=== PATIENT | female | born 1970 | race Caucasian/White ===

== ENCOUNTER 2018-03-16 11:30 | Outpatient (CLI) | payer OTHER | END 2018-03-16 11:31 | disposition home or self-care (01) | LOC: BICMAMMO 11:30 | PROVIDERS: ATTEND Family Medicine | DX: Z12.31 Encounter for screening mammogram for malignant neoplasm of breast (principal) | CPT/HCPCS: 77063; 77067 ==

== ENCOUNTER 2018-04-06 12:19 | Outpatient (CLI) | payer SELFPAY ==
--- NOTE | 2018-04-06 15:45 | ULT ---
THYROID ULTRASOUND: History Thyromegaly. COMPARISON: None. TECHNIQUE: Sagittal and transverse imaging of the thyroid gland is performed. FINDINGS: Isthmus measures 0.14 cm. The right thyroid lobe measures 1.4 x 1.1 x 4.1 cm. The left thyroid lobe measures 1.3 x 1.3 x 4.3 cm. There is a hypoechoic focus in the right thyroid lobe measuring 0.7 cm. There is an irregular complex lesion in the superior pole of the left thyroid lobe measuring 0.5 x 0. 3 x 0.5 cm. There is a cystic lesion in the mid pole left thyroid lobe measuring 0.8 x 0.6 x 0.5 cm. Complex lesion in the mid to lower aspect of the left thyroid lobe measuring 0.8 x 0.5 x 0.5 cm. A small hypoechoic focus in the lower pole of the left thyroid lobe measuring 0.3 x 0.2 x 0.2 cm. Questionable irregular area superior and medial to the superior pole of the left thyroid lobe. This is the region of concern. Dedicated postcontrast soft tissue neck CT is recommended. IMPRESSION: 1. Multiple solid and cystic nodules involving the thyroid gland. The complex lesions in the left t hyroid lobe have a TIRADS calculated score of TR3. Followup imaging in 1 year. 2. Irregular area in the left neck adjacent to the left thyroid lobe. Postcontrast soft tissue neck CT is recommended. POS: TRINA
== END 2018-04-06 12:20 | disposition home or self-care (01) ==
LOC: BICULT 12:19
PROVIDERS: ATTEND Obstetrics & Gynecology
DX: E01.0 Iodine-deficiency related diffuse (endemic) goiter (principal); E04.2 Nontoxic multinodular goiter; E07.9 Disorder of thyroid, unspecified
CPT/HCPCS: 76536

== ENCOUNTER 2019-03-20 13:59 | Outpatient (CLI) | payer OTHER ==
--- NOTE | 2019-03-20 15:01 | ULT ---
LIMITED LEFT BREAST ULTRASOUND: 03/20/2019 PROVIDED CLINICAL HISTORY: Left breast pain. CORRELATION: Outside digital breast tomosynthesis from 02/25/2019. TECHNIQUE: Limited sonographic interrogation was performed of the left breast in the region of left breast pain. FINDINGS: There are no sonographic abnormalities evident in the region of patient pain. IMPRESSION: No sonographic abnormality is evident to explain the patient's breast pain. Negative imaging findings should not preclude further evaluation if clinical findings are suspicious. The patient is referred back to her clinician. POS: OFF
== END 2019-03-20 14:00 | disposition home or self-care (01) ==
LOC: BICMAMMO 13:59
PROVIDERS: ATTEND Student in an Organized Health Care Education/Training Program
DX: N63.0 Unspecified lump in unspecified breast (principal)

== ENCOUNTER 2020-07-25 15:51 | Observation (INO) | payer OTHER, SELFPAY ==
[2020-07-25 16:53] LABS: #Basophils 0.1 thou/uL (0.0-0.2); #Eosinphils 0.1 thou/uL (0.0-0.7); #Lymphocytes 1.8 thou/uL (1.20-3.40); #Monocytes 0.4 thou/uL (0.11-0.59); #Neutrophils 3.2 thou/uL (1.40-6.50); %Eosinophils 1.5 % (0.0-10.0); %Monocytes 7.7 % (0.0-10.0); %Neutrophils 57.9 % (42.0-75.0); Hemoglobin 14.1 g/dL (12.0-16.0); Mean Corpuscular HGB CONC 33.2 g/dL (32.0-36.0); Mean Corpuscular Hemoglobin 30.6 pg (27.0-31.0); Mean Corpuscular Volume 92.3 fL (78.0-98.0); Mean Platelet Volume 8.6 fL (7.4-10.4); Platelet Count 167 thou/uL (130-400); RBC Distribution Width 11.2 % (11.5-14.5); White Blood Cell (WBC) Count 5.6 thou/uL (4.8-10.8)
--- NOTE | 2020-07-25 16:59 | RAD ---
XR Chest 1 View Portable History: Chest pain Comparison: None. Findings: Lungs are mildly hyperinflated. No confluent airspace consolidation, pneumothorax or effusi on. No acute osseous abnormality. Impression: Mild lung hyperinflation can be seen with obstructive pulmonary disease.
[2020-07-25 17:14] LABS: ALT (SGPT) 11 U/L (8-55); AST (SGOT) 15 U/L (5-34); Albumin 4.2 g/dL (3.5-5.0); Alkaline Phosphatase 51 U/L (40-110); Anion Gap 15 mmol/L (10-20); BUN (Urea Nitrogen) 10 mg/dL (7.0-18.7); Bilirubin, Total 0.3 mg/dL (0.2-1.2); Calc. Creatinine Clearance 0 mL/min (70-130); Calcium 8.7 mg/dL (7.8-10.44); Carbon Dioxide 23 mmol/L (22-29); Chloride 104 mmol/L (98-107); Globulin 2.6 g/dL (2.4-3.5); Glucose 143 mg/dL (70-105); Potassium 3.7 mmol/L (3.5-5.1); Protein, Total 6.8 g/dL (6.0-8.3); Sodium 138 mmol/L (136-145)
[2020-07-25] MEDS ORDERED: Aspirin Chewable 81 MG TAB ONE (17:16)
[2020-07-25] MEDS ORDERED: Lorazepam 2 MG/ML VIAL ONE (17:16)
[2020-07-25 17:45] LABS: BHCG - Serum Negative (NEGATIVE); Pregs Control Background? CLEAR/WHITE (CLR/WHITE); Pregs Control Bar Appear? YES (CONTROL BAR)
--- NOTE | 2020-07-25 18:59 | PDOC.FPRHP ---
- History of Present Illness Chief Complaint: Chest pain History of Present Illness: 50yo F presented to the ED [facility] with complaint of chest pain. Pt states she received her 2nd COVID vaccine 2 weeks ago, a few days later started to experience sensation of cold in her nostrils and throat when she breathed - like the burn of breathing cold air. This has been consistent through today. However, earlier today she was on a walk with her and developed chest pain in her central chest. She described the pain as the same burning sensation but it was always present, regardless of breathing. She also started to feel like she was going to pass out which didn't improve until she laid down. By the time she arrived to the ED her sx had significantly improved. Her father had an AL in his early 50's. She is not obese and does not smoke. She states she has hyperlipidemia that she treats with OTC supplements. Pt takes compounded thyroid medications and progesterone. History of esophagitis confirmed on tissue biopsy 2 years ago, is not currently on acid reducing rx. 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 ED Course: Ativan 1mg, 1L NS, 325 ASA. - Allergies/Adverse Reactions Allergies Allergy/AdvReac Type Severity Reaction Status Date / Time adhesive Allergy Intermediate Verified 04/07/15 21:54 codeine Allergy Intermediate Nausea Verified 04/07/15 21:54 corn Allergy Intermediate Verified 07/26/20 05:50 nitrofurantoin Allergy Intermediate Anxiety Verified 04/07/15 21:54 [From Macrobid] nitrofurantoin Allergy Intermediate Anxiety Verified 04/07/15 21:54 macrocrystalline [From Macrobid] GLUTEN Allergy Uncoded 07/26/20 12:52 - Home Medications Medication Instructions Recorded Confirmed Type Dietary Supplement,Misc Comb14 1 capsule PO DAILY 07/25/20 07/25/20 History [Miguel-V] Iron 18 mg PO DAILY 07/25/20 07/25/20 History Magnesium Amino Acid Chelate 100 mg PO DAILY 07/25/20 07/25/20 History [Magnesium] Progesterone, Micronized 100 mg PO DAILY 07/25/20 07/25/20 History [Progesterone] Ubidecarenone/Vit E Acet [Co Q-10 1 each PO DAILY 07/25/20 07/25/20 History 100 mg Softgel] - History PMHx: Hypothyroid, Raynauds, hyperlipidemia, anxiety, depression PSHx: Left knee scope, left shoulder scope, tonsillectomy FHx: Paternal AL in early 50's Social: Denies alcohol, tobacco, drug use. - present. - Review of Systems General: denies: fever/chills, weight/appetite/sleep changes, night sweats Eyes: denies: vision changes, other ENT: denies: nasal congestion, rhinorrhea Respiratory: denies: cough, congestion, shortness of breath Cardiovascular: reports: chest pain. denies: palpitation, edema Gastrointestinal: denies: nausea, vomiting Genitourinary: denies: incontinence, dysuria Skin: denies: rashes, lesions Musculoskeletal: denies: pain, swelling Neurological: reports: syncope (near syncope). denies: numbness Psychological: reports: anxiety, depression - Vital signs BP: 130/64, MAP: 86, Pulse: 99, Resp: 16, Pain: 0, O2 sat: 95 on (Room Air), Wt: 50kg - Physical Exam Constitutional: NAD HEENT: EOMI, MMM Neck: supple, no thyromegaly, no bruits Heart: RRR, normal S1/S2, no murmurs/rubs/gallops, no edema Lungs: CTAB, no respiratory distress, good air movement Abdomen: soft, non-tender Musculoskeletal: normal tone, ROM grossly normal Neurological: no focal deficit Skin: no rash/lesions, good turgor, capillary refill <2 seconds Heme/Lymphatic: no unusual bruising or bleeding, no purpura Psychiatric: good judgment and insight, intact recent and remote memory -Psychiatric: Anxious, tearful at times of exam FMR H&P: Results - Labs Result Diagrams: 07/25/20 16:40 07/25/20 16:40 Lab results: WBC 5.6 thou/uL (4.8-10.8) 07/25/20 16:40 Hgb 14.1 g/dL (12.0-16.0) 07/25/20 16:40 Hct 42.5 % (36.0-47.0) 07/25/20 16:40 MCV 92.3 fL (78.0-98.0) 07/25/20 16:40 Plt Count 167 thou/uL (130-400) 07/25/20 16:40 Neutrophils % 57.9 % (42.0-75.0) 07/25/20 16:40 Sodium 138 mmol/L (136-145) 07/25/20 16:40 Potassium 3.7 mmol/L (3.5-5.1) 07/25/20 16:40 Chloride 104 mmol/L (98-107) 07/25/20 16:40 Carbon Dioxide 23 mmol/L (22-29) 07/25/20 16:40 BUN 10 mg/dL (7.0-18.7) 07/25/20 16:40 Creatinine 0.83 mg/dL (0.6-1.1) 07/25/20 16:40 Glucose 143 mg/dL (70-105) H 07/25/20 16:40 Calcium 8.7 mg/dL (7.8-10.44) 07/25/20 16:40 Total Bilirubin 0.3 mg/dL (0.2-1.2) 07/25/20 16:40 AST 15 U/L (5-34) 07/25/20 16:40 ALT 11 U/L (8-55) 07/25/20 16:40 Alkaline Phosphatase 51 U/L (40-110) 07/25/20 16:40 Serum Total Protein 6.8 g/dL (6.0-8.3) 07/25/20 16:40 Albumin 4.2 g/dL (3.5-5.0) 07/25/20 16:40 - EKG Interpretation EKG: NSR, Non specific T wave changes, borderline QT prolongation - Radiology Interpretation Chest x-ray Status: report reviewed by me (mild hyperinflation) FMR H&P: A/P - Problem List (1) Chest pain Current Visit: Yes Status: Acute Code(s): R07.9 - CHEST PAIN, UNSPECIFIED (2) Hypothyroid Current Visit: Yes Status: Acute Code(s): E03.9 - HYPOTHYROIDISM, UNSPECIFIED (3) Hyperlipidemia Current Visit: Yes Status: Acute Code(s): E78.5 - HYPERLIPIDEMIA, UNSPECIFIED FMR H&P: Upper Level - Plan Chest Pain - ACS r/o - Non specific EKG changes - Negative initial troponin, trend x3 - Heart score: 4 - Asa 81mg - Exercise stress - TTE - Telemetry - Risk stratify Hypothyroid - on compounded thyroid rx - TSH, F T4, T3 Hyperlipidemia - Treated with OTC supplements: nyacin, CoQ 10, flax seed - Lipid panel IVF: SL VTE: SCD Diet: HH Code: Full PCP: [facility] Dispo: Admit to tele observation for ACS r/o and risk stratification. ELOS <48hr Date/Time: 07/25/201858 Jae Davenport DO - PGY2 Addendum - Attending - Attending Attestation Date/Time: 07/25/202009 I personally evaluated the patient and discussed the management with Dr. Davenport. I agree with the History, Examination, Assessment and Plan documented above with any addition or exceptions noted below. The patient will be monitored on telemetry. Getting stress test and echo. Will trend cardiac enzymes. Check thyroid labs.
[2020-07-25 20:31] LABS: Troponin I 0.026 ng/mL (< 0.028)
[2020-07-25 23:10] LABS: Troponin I 0.026 ng/mL (< 0.028)
[2020-07-26 02:14] LABS: SARS-CoV-2 PCR by NAA Not Detected (NotDetected)
[2020-07-26] MEDS ORDERED: Acetaminophen 650 MG Suppository PR PRN (05:43)
[2020-07-26] MEDS ORDERED: Acetaminophen 325 MG TAB PO PRN (05:43)
[2020-07-26] MEDS ORDERED: Nitroglycerin 0.4 MG TAB (25 Tab Bottle) SL PRN (05:43)
[2020-07-26 06:19] VITALS: BMI 20.5
--- NOTE | 2020-07-26 06:28 | PDOC.FM ---
- Subjective Subjective: Patient denies having any of her chest pain this morning. She tells me her doctor had just changed her from armour thyroid to a compounded thyroid about one week ago. - Objective MAR Reviewed: Yes Vital Signs & Weight: Weight Weight 50.802 kg I&O: 07/24/20 07/25/20 07/26/20 06:59 06:59 06:59 Intake Total 10 Output Total 200 Balance -190 Result Diagrams: 07/25/20 16:40 07/25/20 16:40 Phys Exam - Physical Examination Constitutional: NAD Respiratory: no wheezing, clear to auscultation bilateral Cardiovascular: RRR, no significant murmur Gastrointestinal: soft, no distention Psychiatric: normal affect, A&O x 3 Dx/Plan - Plan Plan: Chest Pain - ACS r/o - Non specific EKG changes - Negative initial troponin, trend x3 - Heart score: 4 - Asa 81mg - Exercise stress today - TTE today - FLP wnl Hypothyroid - on compounded thyroid rx - thyroid studies wnl Hyperlipidemia - Treated with OTC supplements: nyacin, CoQ 10, flax seed - wnl flp IVF: SL VTE: SCD Diet: npo for stress Code: Full PCP: [facility] Dispo: tele obs, if normal stress/echo may d/c. Discussed w/ Dr. Richmond. Addendum - Attending - Attending Attestation Date/Time: 07/26/20 1301 I personally evaluated the patient and discussed the management with Dr. Cruz. I agree with the History, Examination, Assessment and Plan documented above with any addition or exceptions noted below. The patient's is free of chest pain. Cardiac enzymes negative. Stress test and echo today. Home if normal.
[2020-07-26 07:13] LABS: Cardiac Risk 3.3 (Less than 4.5)
[2020-07-26 07:30] LABS: Thyroid Stimulating Hormone 2.4545 uIU/mL (0.35-4.94)
[2020-07-26] MEDS ORDERED: Ferrous Sulfate 325 MG TAB PO SCH (08:00)
[2020-07-26] MEDS ORDERED: Progesterone,Micronized 100 MG CAP PO SCH (09:00)
[2020-07-26] MEDS ORDERED: Aspirin Chewable 81 MG TAB PO SCH (09:00)
[2020-07-26] MEDS ORDERED: Ubidecarenone 50 MG CAP PO SCH (09:00)
[2020-07-26 12:55] VITALS: BP 123/58; TEMP 98.4
--- NOTE | 2020-07-26 16:55 | NM ---
MYOCARDIAL PERFUSION SCAN WITH SPECT IMAGING: History: Chest pain FINDINGS: Examination was performed using 27.4 mCi 99M Technetium Sestamibi on the stress and 9.1 mCi on the re sting images. These show a normal distribution of the radiopharemaceutical without signs of ischemia or scar. WALL MOTION: Symmetric contractility to the ventricle. LEFT VENTRICULAR EJECTION FRACTION: The calculated left ventricular ejection fraction is 73%. IMPRESSION: Unremarkable myocardial perfusion scan. POS: OFF
--- NOTE | 2020-07-26 17:29 | DIS ---
DATE OF ADMISSION: 07/25/2020 DATE OF DISCHARGE: 07/26/2020 RESIDENT: Mimi Cruz MD PROCEDURES: 1. Chest x-ray showing hyperinflation and no acute cardiothoracic process. 2. Stress test preliminary results negative. 3. Echocardiogram results pending at time of discharge. PRIMARY DIAGNOSES: 1. Atypical chest pain. 2. Acute coronary syndrome ruled out. SECONDARY DIAGNOSES: 1. Hypothyroidism. 2. Hyperlipidemia. DISCHARGE MEDICATIONS: 1. Progesterone 100 mg p.o. daily. 2. Dietary supplement one capsule p.o. daily. 3. CoQ10 one tab p.o. daily. 4. Magnesium 100 mg p.o. daily. 5. Iron 18 mg p.o. daily. DISCONTINUED MEDICATIONS: None. HISTORY OF PRESENT ILLNESS AND HOSPITAL COURSE: This is a 50-year-old relatively healthy woman, admitted to the hospital due to complaints of chest pain. She noticed this after her second COVID vaccination, but felt like cold when she breathed in. She felt the pain as a cold feeling in her central chest. The patient had felt faint a couple of times, but she did not have syncope. Of note, she has had an irregular heartbeat in the past; she is unable to tell me what that is. 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 In the emergency room, the patient received Ativan 1 mg, 1 L of normal saline, and 325 mg of aspirin. The day after admission, the patient was feeling better. She had no events on telemetry overnight. Her walking stress test showed no EKG changes. Nuclear imaging was pending at the time of her discharge. Echocardiogram was performed. Laboratory data includes hemoglobin 14.1, hematocrit 42.5. D-dimer 0.35. A1c 5.0. Troponin stable at 0.026. Fasting lipid panel within normal limits. TSH 2.45 and free T4 of 1.0. test negative. Sodium 138, potassium 3.7, chloride 104, carbon dioxide 23, BUN 10, creatinine 0.83, glucose 143. The patient was deemed to be very low risk with regard to cardiac event and given initial negative results, she was discharged home. DISCHARGE INSTRUCTIONS: 1. Location: Home. 2. Activity: As tolerated. 3. Diet: Regular. 4. Followup: Follow up with PCP within 7 days. Job ID: [id number]
--- NOTE | 2020-07-31 10:08 | EKG ---
Test Reason : Blood Pressure : / mmHG Vent. Rate : 083 BPM Atrial Rate : 083 BPM P-R Int : 128 ms QRS Dur : 068 ms QT Int : 436 ms P-R-T Axes : 050 078 055 degrees QTc Int : 512 ms Normal sinus rhythm Nonspecific ST and T wave abnormality Abnormal ECG Confirmed by Camelia AGUILAR ([id number]), city editor KAMILA GARCIA ([id number]) on 07/31/2020 10:08:10 AM Referred By: Confirmed By:Camelia AGUILAR
== END 2020-07-26 15:46 | disposition home or self-care (01) ==
LOC: ERS 15:51 → ERHOLD 18:35 → 3SE 19:42
PROVIDERS: ADMIT Family Medicine; ATTEND Family Medicine
DX: R07.89 Other chest pain (principal); E03.9 Hypothyroidism, unspecified; E78.5 Hyperlipidemia, unspecified; I73.00 Raynaud's syndrome without gangrene; F41.9 Anxiety disorder, unspecified; F32.9 Major depressive disorder, single episode, unspecified; Z79.899 Other long term (current) drug therapy; Z88.1 Allergy status to other antibiotic agents; Z88.5 Allergy status to narcotic agent; Z91.018 Allergy to other foods; Z91.048 Other nonmedicinal substance allergy status; Z20.822 Contact with and (suspected) exposure to COVID-19
CPT/HCPCS: 36415; 71045; 78452; 80053; 80061; 83036; 84439; 84443; 84480; 84484; 84703; 85025; 85379; 87635; 93005; 93017; 93306; 96374; A9500; G0378; J2060; U0003; U0005

== ENCOUNTER 2020-08-04 14:05 | Observation (INO) | payer OTHER, SELFPAY ==
[~2020-08-04 14:05] MED LIST: Iopamidol-370 76% 500 ML 1 ML ONE
[2020-08-04 14:31] LABS: #Eosinphils 0.1 thou/uL (0.0-0.7); #Lymphocytes 1.8 thou/uL (1.20-3.40); #Monocytes 0.7 thou/uL (0.11-0.59); #Neutrophils 4.8 thou/uL (1.40-6.50); %Basophils 0.6 % (0.0-1.0); %Lymphocytes 23.6 % (21.0-51.0); %Monocytes 9.5 % (0.0-10.0); %Neutrophils 65.3 % (42.0-75.0); Mean Corpuscular HGB CONC 32.6 g/dL (32.0-36.0); Mean Corpuscular Hemoglobin 30.5 pg (27.0-31.0); Mean Corpuscular Volume 93.3 fL (78.0-98.0); Mean Platelet Volume 8.6 fL (7.4-10.4); Platelet Count 140 thou/uL (130-400); RBC Distribution Width 11.4 % (11.5-14.5); Red Blood Cell (RBC) Count 4.92 mill/uL (4.20-5.40); White Blood Cell (WBC) Count 7.4 thou/uL (4.8-10.8)
[2020-08-04 14:51] LABS: ALT (SGPT) 9 U/L (8-55); AST (SGOT) 13 U/L (5-34); Albumin 4.4 g/dL (3.5-5.0); Alkaline Phosphatase 48 U/L (40-110); Anion Gap 15 mmol/L (10-20); BUN (Urea Nitrogen) 10 mg/dL (7.0-18.7); Bilirubin, Total 0.6 mg/dL (0.2-1.2); CK (CPK) 69 U/L (29-168); Calc. Creatinine Clearance 0 mL/min (70-130); Calcium 9.6 mg/dL (7.8-10.44); Carbon Dioxide 23 mmol/L (22-29); Chloride 101 mmol/L (98-107); Globulin 2.6 g/dL (2.4-3.5); Glucose 155 mg/dL (70-105); Lipase 31 U/L (8-78); Sodium 135 mmol/L (136-145)
[2020-08-04] MEDS ORDERED: Aspirin Chewable 81 MG TAB ONE (14:56)
[2020-08-04] MEDS ORDERED: ALPRAZolam 0.5 MG TAB ONE (17:50)
[2020-08-04] MEDS ORDERED: Nitroglycerin 0.4 MG TAB (25 Tab Bottle) SL PRN (20:12)
[2020-08-04] MEDS ORDERED: Acetaminophen 325 MG TAB PO PRN (20:12)
[2020-08-04] MEDS ORDERED: Ondansetron ODT 4 MG TAB PO PRN (20:12)
[2020-08-04 21:00] VITALS: BMI 19.9
[2020-08-04 21:26] LABS: Troponin I 0.025 ng/mL (< 0.028)
[2020-08-05 00:32] LABS: Troponin I 0.022 ng/mL (< 0.028)
[2020-08-05 08:21] LABS: SARS-CoV-2 PCR by NAA Not Detected (NotDetected)
[2020-08-05] MEDS ORDERED: Aspirin Chewable 81 MG TAB PO SCH (09:00)
[2020-08-05] MEDS ORDERED: Iopamidol 370 76% 100 ML VIAL ONE (10:48)
[2020-08-05] MEDS ORDERED: Lactated Ringer's 1,000 ML IV SCH (11:30)
[2020-08-05] MEDS ORDERED: Lidocaine 1% (PF) 30 ML VIAL ONE (13:58)
[2020-08-05] MEDS ORDERED: Fentanyl 100 MCG/2 ML VIAL ONE (14:22)
[2020-08-05] MEDS ORDERED: Midazolam HCl 2 mg/2 ml Vial ONE (14:22)
[2020-08-05] MEDS ORDERED: Nitroglycerin 100MG/250ML BOT 250 ML ONE (14:29)
[2020-08-05 19:48] VITALS: BP 133/60; TEMP 97.8
== END 2020-08-05 19:44 | disposition home or self-care (01) ==
LOC: ERS 14:05 → 2NO 17:56
PROVIDERS: ADMIT Family Medicine; ATTEND Family Medicine
PROC: 4A023N7 Measurement of Cardiac Sampling and Pressure, Left Heart, Percutaneous Approach (ICD-10-PCS; principal; 2020-08-05)
PROC: B2111ZZ Fluoroscopy of Multiple Coronary Arteries using Low Osmolar Contrast (ICD-10-PCS; 2020-08-05)
DX: R07.89 Other chest pain (principal); E78.5 Hyperlipidemia, unspecified; E03.9 Hypothyroidism, unspecified; I73.00 Raynaud's syndrome without gangrene; R42 Dizziness and giddiness; F41.9 Anxiety disorder, unspecified; F32.9 Major depressive disorder, single episode, unspecified; Z79.899 Other long term (current) drug therapy; Z88.1 Allergy status to other antibiotic agents; Z88.5 Allergy status to narcotic agent; Z91.018 Allergy to other foods; Z91.048 Other nonmedicinal substance allergy status; Z20.822 Contact with and (suspected) exposure to COVID-19
CPT/HCPCS: 36415; 70496; 70498; 71045; 76942; 80053; 82550; 83690; 84484; 85025; 87635; 93005; 93458; 99152; G0378; J1644; J2001; J2250; J3010; Q9967; U0003; U0005

== ENCOUNTER 2020-12-10 15:23 | Outpatient (CLI) | payer OTHER | END 2020-12-10 15:24 | disposition home or self-care (01) | LOC: SCSRAD 15:23 | PROVIDERS: ATTEND Family Medicine | DX: M54.2 Cervicalgia (principal); M47.812 Spondylosis without myelopathy or radiculopathy, cervical region; M77.9 Enthesopathy, unspecified | CPT/HCPCS: 72052 ==

== ENCOUNTER 2021-10-22 09:55 | Outpatient (CLI) | payer OTHER | END 2021-10-22 09:56 | disposition home or self-care (01) | LOC: BICMAMMO 09:55 | PROVIDERS: ATTEND Student in an Organized Health Care Education/Training Program | DX: Z12.31 Encounter for screening mammogram for malignant neoplasm of breast (principal); R92.1 Mammographic calcification found on diagnostic imaging of breast | CPT/HCPCS: 77063; 77067 ==

== ENCOUNTER 2021-11-04 10:10 | Outpatient (CLI) | payer OTHER | END 2021-11-04 10:11 | disposition home or self-care (01) | LOC: BICMAMMO 10:10 | PROVIDERS: ATTEND Student in an Organized Health Care Education/Training Program | DX: R92.1 Mammographic calcification found on diagnostic imaging of breast (principal) | CPT/HCPCS: G0279 ==

== ENCOUNTER 2022-02-09 14:45 | Outpatient (CLI) | payer OTHER | END 2022-02-09 14:46 | disposition home or self-care (01) | LOC: BICMAMMO 14:45 | PROVIDERS: ATTEND Student in an Organized Health Care Education/Training Program | DX: R92.8 Other abnormal and inconclusive findings on diagnostic imaging of breast (principal) | CPT/HCPCS: G0279 ==

== ENCOUNTER 2022-08-03 09:58 | Outpatient (CLI) | payer OTHER | END 2022-08-03 09:59 | disposition home or self-care (01) | LOC: BICMAMMO 09:58 | PROVIDERS: ATTEND Family Medicine | DX: N63.20 Unspecified lump in the left breast, unspecified quadrant (principal) | CPT/HCPCS: 77066; G0279 ==

== ENCOUNTER 2022-08-03 12:00 | Outpatient (CLI) | payer OTHER | END 2022-08-03 12:01 | disposition home or self-care (01) | LOC: BICULT 12:00 | PROVIDERS: ATTEND Family Medicine | DX: R10.11 Right upper quadrant pain (principal); Z79.899 Other long term (current) drug therapy | CPT/HCPCS: 76705 ==

== ENCOUNTER 2022-08-29 16:17 | Outpatient (CLI) | payer SELFPAY ==
[2022-08-29 17:21] LABS: #Eosinphils 0.1 10x3/uL (0.0-0.5); #Monocytes 0.4 10x3/uL (0.0-1.1); #Neutrophils 3.1 10x3/uL (1.5-8.4); %Basophils 0.4 % (0.0-2.0); %Eosinophils 1.1 % (0.0-6.0); %Lymphocytes 32.8 % (18.0-47.0); %Monocytes 6.6 % (0.0-10.0); %Neutrophils 58.7 % (40.0-75.0); Hemoglobin 14.1 g/dL (12.0-15.5); Mean Corpuscular HGB CONC 32.6 g/dL (32.0-36.0); Mean Corpuscular Hemoglobin 29.8 pg (27.0-33.0); Mean Corpuscular Volume 91.3 fl (81.6-98.3); Mean Platelet Volume 10.8 fl (7.4-10.4); Platelet Count 174 10x3/uL (150-450); RBC Distribution Width 12.3 % (11.5-14.5); Red Blood Cell (RBC) Count 4.73 10x6/uL (3.90-5.03); White Blood Cell (WBC) Count 5.3 10x3/uL (3.5-10.5)
[2022-08-29 17:35] LABS: Anion Gap 16 mmol/L (10-20); BUN (Urea Nitrogen) 13 mg/dL (7.0-18.7); Calc. Creatinine Clearance 0 mL/min (70-130); Calcium 9.4 mg/dL (7.8-10.44); Carbon Dioxide 24 mmol/L (22-29); Chloride 105 mmol/L (98-107); Estimated GFR 81; Glucose 143 mg/dL (70-105); Potassium 3.9 mmol/L (3.5-5.1); Sodium 141 mmol/L (136-145)
== END 2022-08-29 16:18 | disposition home or self-care (01) ==
LOC: LABBT 16:17
PROVIDERS: ATTEND Surgery
DX: Z01.812 Encounter for preprocedural laboratory examination (principal); N63.0 Unspecified lump in unspecified breast
CPT/HCPCS: 80048; 85025

== ENCOUNTER 2022-09-02 07:06 | Day surgery (SDC) | payer OTHER ==
[2022-08-31 11:48] VITALS: BMI 19.9
[2022-09-02] MEDS ORDERED: fentaNYL 50 mcg/mL 1 mL Vial ONE ×3 (10:30→13:40)
[2022-09-02] MEDS ORDERED: Famotidine/PF 20 mg/2ml Vial ONE (11:23)
[2022-09-02] MEDS ORDERED: Lidocaine 2% PF 5 ML VIAL ONE (11:35)
[2022-09-02] MEDS ORDERED: Bupivacaine/Epinephrine 0.25% 30 ML VIAL ONE (11:35)
[2022-09-02] MEDS ORDERED: Sodium Chloride 0.9% 100 ML ONE (11:51)
[2022-09-02] MEDS ORDERED: CEFAZOLIN 2 GM VIAL ONE (11:51)
[2022-09-02] MEDS ORDERED: Lidocaine 1% PF 5 ML VIAL ONE (12:10)
[2022-09-02] MEDS ORDERED: Phenylephrine 10 MG/ML VIAL ONE (12:10)
[2022-09-02] MEDS ORDERED: Ketorolac Tromethamine 30 MG/ML VIAL ONE (12:10)
[2022-09-02] MEDS ORDERED: Ondansetron PF 4 MG/2 ML Vial ONE (12:10)
[2022-09-02] MEDS ORDERED: GLYCOPYRROLATE/PF 0.2 MG/ML VIAL ONE (12:10)
[2022-09-02] MEDS ORDERED: ePHEDrine Sulfate 50 MG/10 ML VIAL ONE (12:10)
[2022-09-02] MEDS ORDERED: Dexamethasone 20 MG/5 ML VIAL ONE (12:10)
[2022-09-02] MEDS ORDERED: PROPOFOL 200 MG/20 ML VIAL ONE (12:10)
== END 2022-09-02 15:34 | disposition home or self-care (01) ==
LOC: SDC 07:06
PROVIDERS: ATTEND Surgery
PROC: 0HBV0ZZ Excision of Bilateral Breast, Open Approach (ICD-10-PCS; principal; 2022-09-02)
DX: N60.21 Fibroadenosis of right breast (principal); N60.22 Fibroadenosis of left breast; N60.92 Unspecified benign mammary dysplasia of left breast; E78.00 Pure hypercholesterolemia, unspecified; E07.9 Disorder of thyroid, unspecified; G89.29 Other chronic pain; Z79.82 Long term (current) use of aspirin; Z79.890 Hormone replacement therapy; Z79.899 Other long term (current) drug therapy; Z88.1 Allergy status to other antibiotic agents; Z88.5 Allergy status to narcotic agent; Z91.018 Allergy to other foods; Z91.040 Latex allergy status; Z91.048 Other nonmedicinal substance allergy status
CPT/HCPCS: 19281; 76098; 88307; J1100; J1885; J2001; J2370; J2405; J2704; J3010; J3490; S0028

== ENCOUNTER 2023-02-23 17:39 | Outpatient (CLI) | payer SELFPAY | END 2023-02-23 17:40 | disposition home or self-care (01) | LOC: RAD 17:39 | PROVIDERS: ATTEND Family Medicine | DX: S69.92XA Unspecified injury of left wrist, hand and finger(s), initial encounter (principal) ==

== ENCOUNTER 2024-04-16 09:17 | Outpatient (CLI) | payer OTHER | END 2024-04-16 09:18 | disposition home or self-care (01) | LOC: BICMRI 09:17 | PROVIDERS: ATTEND Family Medicine | DX: N64.4 Mastodynia (principal); Z98.890 Other specified postprocedural states | CPT/HCPCS: A9577; C8908 ==